=== PATIENT | male | born 1985 | race Asian ===

== ENCOUNTER 2019-10-09 16:07 | Outpatient (CLI) | payer BC ==
--- NOTE | 2019-10-09 16:28 | RAD ---
Chest 2 views HISTORY: Preemployment health screening. FINDINGS: No comparison. Cardiac silhouette and pulmonary vasculature are unremarkable. Mediastinum is midline. No confluent airspace consolidation, pneumothorax, or pleural fluid are appar ent. IMPRESSION : No abnormalities are demonstrated.
== END 2019-10-09 16:08 | disposition home or self-care (01) ==
LOC: SCSRAD 16:07
PROVIDERS: ATTEND Physician Assistant Medical
DX: Z02.1 Encounter for pre-employment examination (principal)
CPT/HCPCS: 36415; 71046; 80053; 80061; 81001; 83036; 84443; 85025; 85652